=== PATIENT | male | born 1965 | race Caucasian/White ===

== ENCOUNTER 2022-04-03 12:24 | Emergency (ER) | payer BC ==
[2022-04-03 12:30] VITALS: TEMP 97.4
[2022-04-03] MEDS ORDERED: DIPH,PERTUS(ACELL)TETVAC-LF 0.5 ML VIAL IM ONE (13:34)
--- NOTE | 2022-04-03 13:44 | ED ---
General Adult HPI - General Chief complaint: Head Injury Stated complaint: Fall, head injury Time Seen by Provider: 04/03/22 13:01 Source: patient, RN notes reviewed Mode of arrival: ambulatory Limitations: no limitations - History of Present Illness Initial comments: 56-year-old male presents emergency Department chief complaint of head injury. Patient states that he was trying to break a piece of trex board states that he fell backwards striking his head on the concrete. Patient has an abrasion, hematoma of the scalp. Patient states he felt very days felt that he cannot get up initially had no loss conscious. He is very minimal no headache at this time does complain of mild neck discomfort. Patient has no focal weakness does have an abrasion to his left elbow he states is unsure when his last tetanus was. - Related Data Allergies Allergy/AdvReac Type Severity Reaction Status Date / Time zinc Allergy Unknown Verified 04/03/22 12:28 Review of Systems ROS Statement: Those systems with pertinent positive or pertinent negative responses have been documented in the HPI. ROS Other: All systems not noted in ROS Statement are negative. Past Medical History Past Medical History: Diabetes Mellitus History of Any Multi-Drug Resistant Organisms: None Reported Past Surgical History: No Surgical Hx Reported Past Psychological History: No Psychological Hx Reported Smoking Status: Never smoker Past Alcohol Use History: None Reported Past Drug Use History: None Reported General Exam Limitations: no limitations General appearance: alert, in no apparent distress Head exam: Present: normocephalic. Absent: atraumatic, normal inspection (This a posterior scalp hematoma abrasion noted) Eye exam: Present: normal appearance, PERRL, EOMI. Absent: scleral icterus, conjunctival injection, periorbital swelling ENT exam: Present: normal exam, normal oropharynx, mucous membranes moist Neck exam: Present: normal inspection, full ROM. Absent: tenderness, meningismus, lymphadenopathy Respiratory exam: Present: normal lung sounds bilaterally. Absent: respiratory distress, wheezes, rales, rhonchi, stridor Cardiovascular Exam: Present: regular rate, normal rhythm, normal heart sounds. Absent: systolic murmur, diastolic murmur, rubs, gallop, clicks GI/Abdominal exam: Present: soft, normal bowel sounds. Absent: distended, tenderness, guarding, rebound, rigid Neurological exam: Present: alert, oriented X3, CN II-XII intact, reflexes normal. Absent: motor sensory deficit Skin exam: Present: warm, dry, intact, normal color. Absent: rash Course Vital Signs 04/03/22 12:28 Temperature 97.4 F L Pulse Rate 92 Respiratory 18 Rate Blood Pressure 161/90 O2 Sat by Pulse 99 Oximetry Medical Decision Making - Medical Decision Making CT of brain is unremarkable, C-spine unremarkable. Patient is neurologically intact patient has no other complaints return parameters were discussed Disposition Clinical Impression: Scalp contusion Disposition: HOME SELF-CARE Condition: Stable Instructions (If sedation given, give patient instructions): Head Injury (ED) Additional Instructions: Please return to the Emergency Department if symptoms worsen or any other concerns. Is patient prescribed a controlled substance at d/c from ED?: No Referrals: Nonstaff,Physician [Primary Care Provider] - 1-2 days Time of Disposition: 14:53
--- NOTE | 2022-04-03 15:10 | CT ---
EXAMINATION TYPE: CT brain wo con DATE OF EXAM: 04/03/2022 COMPARISON: None available HISTORY: Trauma, head injury CT DLP: 1070.4 mGycm Automated exposure control for dose reduction was used. TECHNIQUE: CT scan of the brain is performed without IV contrast administration. FINDINGS: No acute intracranial hemorrhage. No gross acute cortical infarct. No midline shift, herniation or ve ntriculomegaly. Unremarkable basal cisterns, sella and CP angles. No gross space-occupying lesion, vasogenic edema or mass effect. Unremarkable orbits. Posterior parietal scalp swelling/hematoma. Clear visualized paranasal sinuses a nd mastoid air cells. Unremarkable calvarial bones. IMPRESSION: No acute intracranial posttraumatic sequelae or acute calvarial bone fracture. Posterior parietal sca lp swelling/hematoma.
[2022-04-03 15:29] VITALS: BP 143/84; PULSE 88; RESP 15
== END 2022-04-03 15:29 | disposition home or self-care (01) ==
LOC: EC 12:24
DX: S00.03XA Contusion of scalp, initial encounter (principal); E11.9 Type 2 diabetes mellitus without complications; Z23 Encounter for immunization; Z88.8 Allergy status to other drugs, medicaments and biological substances; W19.XXXA Unspecified fall, initial encounter
CPT/HCPCS: 70450; 90471; 90715; 99284

== ENCOUNTER → 2023-11-12 | Outpatient (CLI) | payer BC ==
[2023-11-12 18:19] LABS: Basophils # (A) 0.06 X 10*3/uL (0.00-0.10); Basophils % (A) 0.8 %; Eosinophils # (A) 0.24 X 10*3/uL (0.04-0.35); Eosinophils % (A) 3.2 %; HGB 16.3 g/dL (13.0-17.0); Lymphocytes # (A) 2.28 X 10*3/uL (0.90-5.00); MCH 29.9 pg (27.0-32.0); MCV 88.1 FL (80.0-97.0); Mean Platelet Volume 11.3 FL (9.5-12.2); Monocytes # (A) 0.54 X 10*3/uL (0.20-1.00); Monocytes % (A) 7.1 %; NRBC Per 100 WBC 0 X 10*3/uL (0.00-0.01); Neutrophils # (A) 4.45 X 10*3/uL (1.80-7.70); Neutrophils % (A) 58.4 %; Platelet Count 232 X 10*3/uL (140-440); RBC 5.45 X 10*6/uL (4.40-5.60); RDW 13.3 % (11.5-14.5); WBC 7.61 X 10*3/uL (4.50-10.00)
[2023-11-12 18:31] LABS: ALT 50 U/L (10-49); AST 34 U/L (14-35); BUN/Creat Ratio 11.56 Ratio (12.00-20.00); Blood Urea Nitrogen 10.4 mg/dL (9.0-27.0); Calcium 10.1 mg/dL (8.7-10.3); Carbon Dioxide 28.2 mmol/L (21.6-31.8); Chloride 98 mmol/L (96-109); Chol/HDL Ratio 2.61 Ratio; Creatine Kinase 189 U/L (35-257); Glucose 111 mg/dL (70-110); LDL Cholesterol,Calculated 64.5 mg/dL (0.0-131.0); Potassium 4.4 mmol/L (3.5-5.5); Sodium 139 mmol/L (135-145); VLDL Calculation 14.42 mg/dL (5.00-40.00)
[2023-11-12 20:36] LABS: Urine Creatinine 61.1 mg/dL (39.0-259.0)
[2023-11-13 10:57] LABS: Microalbumin Creatinine Ratio <20 mg/g Cr (0-30)
== END | disposition home or self-care (01) ==
LOC: LABWHC1 14:26
DX: I10 Essential (primary) hypertension (principal); E78.5 Hyperlipidemia, unspecified; E11.3593 Type 2 diabetes mellitus with proliferative diabetic retinopathy without macular edema, bilateral
CPT/HCPCS: 36415; 80048; 80061; 82043; 82550; 82570; 83036; 84450; 84460; 85025

== ENCOUNTER → 2024-02-25 | Outpatient (CLI) | payer BC ==
[2024-02-25 19:21] LABS: BUN/Creat Ratio 11.44 Ratio (12.00-20.00); Blood Urea Nitrogen 10.3 mg/dL (9.0-27.0); Carbon Dioxide 27.2 mmol/L (21.6-31.8); Chloride 102 mmol/L (96-109); Chol/HDL Ratio 2.17 Ratio; Glucose 113 mg/dL (70-110); LDL Cholesterol,Calculated 52.7 mg/dL (0.0-131.0); Potassium 4.2 mmol/L (3.5-5.5); Sodium 142 mmol/L (135-145); VLDL Calculation 15.72 mg/dL (5.00-40.00)
[2024-02-25 19:22] LABS: ALT 37 U/L (10-49); AST 27 U/L (14-35); Albumin 4.6 g/dL (3.8-4.9); Albumin/Globulin Ratio 1.92 Ratio (1.60-3.17); Alkaline Phosphatase 54 U/L (41-126); Calcium 10.1 mg/dL (8.7-10.3); Globulin 2.4 g/dL (1.6-3.3); Total Bilirubin 0.5 mg/dL (0.3-1.2)
[2024-02-25 21:58] LABS: Microalbumin Creatinine Ratio <14 mg/g Cr (0-30); Urine Creatinine 87.6 mg/dL (39.0-259.0)
== END | disposition home or self-care (01) ==
LOC: LABWHC1 15:52
PROVIDERS: ATTEND Internal Medicine Endocrinology, Diabetes & Metabolism
DX: E11.65 Type 2 diabetes mellitus with hyperglycemia (principal)
CPT/HCPCS: 36415; 80053; 80061; 82043; 82570; 83036; 84443